=== PATIENT | female | born 1950 | race Caucasian/White ===

== ENCOUNTER 2020-05-26 13:47 | Emergency (ER) | payer MEDICARE, OTHER, SELFPAY ==
--- NOTE | ~2020-05-26 | XR_ITS ---
XR ankle LT min 3V DATE: 05/26/2020 14:22 INDICATION: Pain and swelling, redness TECHNIQUE: 4 views COMPARISON: None FINDINGS: There is generalized moderate soft tissue swelling of the ankle, greater laterally. There i s prominent plantar and posterior calcaneal enthesopathy. No fracture or dislocation, periosteal reaction or bone destruction. IMPRESSION: Nonspecific soft tissue swelling Plantar and posterior calcaneal enthesopathy Reviewed, dictated and finalized at location A.
[2020-05-26 14:04] VITALS: BP 183/90; PULSE 105; RESP 16; TEMP 36.5; O2SAT 99
--- NOTE | 2020-05-26 14:27 | ED.GENADULT ---
HPI - General Adult General Chief complaint: Extremity Injury, Lower Stated complaint: Extremity injury, lower Time Seen by Provider: 05/26/20 14:27 Source: patient Mode of arrival: ambulatory Limitations: no limitations History of Present Illness HPI narrative: 69-year-old female patient presents to the [facility] with complaints of left ankle pain that started Wednesday afternoon. Patient states it started kind of aching on Wednesday afternoon however the last couple of days it is gotten increasingly worse to the point that she barely touches the lateral side of her ankle and complains of pain and states she has pain walking on it as well. Denies any injury or falling that she is aware of. Patient states that she is on blood thinners from a previous PE. Patient states she also takes metoprolol for blood pressure. Patient denies ever having gout before in the past that she is aware of. Related Data Home Medications Medication Instructions Recorded Confirmed Jackpot Thyroid 150 mcg PO DAILY 05/26/20 05/26/20 metformin 500 mg PO BID 05/26/20 05/26/20 metoprolol succinate 100 mg PO DAILY 05/26/20 05/26/20 warfarin 4 mg PO DAILY 05/26/20 05/26/20 Allergies Allergy/AdvReac Type Severity Reaction Status Date / Time povidone-iodine Allergy Rash Verified 05/26/20 14:08 [From Betadine] soap [From Betadine] Allergy Rash Verified 05/26/20 14:08 Review of Systems Review of Systems: Narrative: CONSTITUTIONAL: Denies fever, chills, or sweats. EYES: Denies visual changes, redness, or discharge. ENT: Denies rhinorrhea, congestion, sore throat, or otalgia. CARDIOVASCULAR: Denies chest pain, palpitations, or edema. RESPIRATORY: Denies cough or dyspnea. GASTROINTESTINAL: Denies abdominal pain, nausea, vomiting, or diarrhea. GENITOURINARY: Denies dysuria or hematuria. SKIN: Denies rash or itching. MUSCULOSKELETAL: Denies back pain, joint pain, or myalgia. Positive left ankle pain NEUROLOGIC: Denies headache, numbness, or weakness. PSYCHIATRIC: Denies anxiety or depression. FOR[facility]LY [facility] Past Medical History Medical History (Updated 05/26/20 @ 14:45 by FAUSTINA Beltran) Diabetes Pulmonary embolism Comments At the time of my signature I agree with nursing past medical history, surgical, social, and family history. There is no relevant family history pertinent to the presenting complaint. Exam Narrative: Exam Narrative: GENERAL: Well-appearing, well-nourished, and in no acute distress. HEAD: Normocephalic, atraumatic. EYES: PERRLA and EOMI. ENT: Nares clear, no rhinorrhea or epistaxis. Mucous membranes moist. NECK: Supple. No lymphadenopathy CHEST: Clear to auscultation. No respiratory distress. HEART: Regular rate and rhythm. No murmur heard. Normal peripheral pulses. ABDOMEN: Soft, nontender, nondistended, normal active bowel sounds. EXTREMITIES: Patient is able to bear weight and ambulate but does have pain to the left ankle. The L ankle is without obvious asymmetry or deformity when compared to the R ankle. Patient can flex/extend, invert/terrance but has pain on the lateral side when doing so. No obvious surface trauma, ecchymosis. There is slight swelling, warmth and a little bit of erythema noted over the lateral malleolus area. Tenderness noted on very light palpation to the lateral malleolus of the left ankle. Anterior talofibular ligament, posterior talofibular ligament, calcaneofibular ligament nontender and without swelling. No tenderness or deformity of the midfoot or over the proximal fifth metatarsal. Good DP and posterior tibial pulses and sensation to light touch normal. Talar tilt test is negative for ligament laxity to valgus or vargus stress. Negative anterior draw. Peroneal nerve is intact with strong eversion and plantar flexion. SKIN: Warm, dry, no rash. NEURO: No focal deficits. Alert and oriented x3. Course Reevaluation(s) Reevaluation #1: Reevaluated patient and notified her that her x-ray does not appear to show
== END 2020-05-26 14:50 | disposition home or self-care (01) ==
PROVIDERS: Emergency Provider Nurse Practitioner Family; PCP Family Medicine
DX: M10.9 Gout, unspecified (principal); E11.9 Type 2 diabetes mellitus without complications; Z86.711 Personal history of pulmonary embolism; Z79.01 Long term (current) use of anticoagulants; I10 Essential (primary) hypertension
CPT/HCPCS: 73610; 99213; G0463

== ENCOUNTER 2022-01-27 12:37 | Outpatient (CLI) | payer MEDICARE, OTHER, SELFPAY ==
--- NOTE | ~2022-01-27 | MMUS_ITS ---
EXAMINATION: MM diagnostic julio LT w xi, US breast LT limited HISTORY: Indeterminate focal asymmetry reported in the central slightly medial left breast on outside 01/15/2022 screening mammogram examination TECHNIQUE: Additional 3-D tomosynthesis images of the left breast were performed and synthetic 2-D im ages were generated. CAD analysis was submitted and interpreted. High resolution limited subareolar a nd 11-1:00 left breast ultrasound was performed. COMPARISON: bilateral screening mammogram BREAST PARENCHYMAL COMPOSITION: There are scattered areas of fibroglandular density. FINDINGS: MAMMOGRAPHIC FINDINGS: There is an approximately 4 cm long up to 4 mm wide density extending from the nipple into the upper mid left breast, having the appearance of the dilated duct, with some proximal branching. Scattered left breast benign calcifications are noted.. No suspicious mass or architectural distortion, malignant calcification, skin thickening or retractio n is evident. ULTRASOUND: A dilated duct is confirmed, measuring in excess of 5 cm length, up to approximately 3.9 mm diameter. No suspicious mass or suspicious shadowing is noted. There is some shadowing from some calcified phle boliths. IMPRESSION: 1. Benign findings; no mammographic evidence of malignancy 2. Routine annual mammographic screening is recommended. BI-RADS Category 2: Benign finding(s). Reviewed, dictated and finalized at location A. IMPRESSION: 1. Benign findings; no mammographic evidence of malignancy 2. Routine annual mammographic screening is recommended. BI-RADS Category 2: Benign finding(s).
== END 2022-01-27 12:38 | disposition home or self-care (01) ==
LOC: ANHIMG 12:39
PROVIDERS: PCP Family Medicine; Visit Provider Family Medicine
DX: R92.8 Other abnormal and inconclusive findings on diagnostic imaging of breast (principal)
CPT/HCPCS: 76642; 77061; 77065; G0279